=== PATIENT | female | born 1950 | race Caucasian/White ===

== ENCOUNTER → 2024-06-26 15:08 | Outpatient (REF) | payer MEDICARE, SELFPAY | LOC: RAD 15:08 | PROVIDERS: ATTENDING PHYSICIAN Orthopaedic Surgery; FAMILY PHYSICIAN Internal Medicine | DX: S83.232A Complex tear of medial meniscus, current injury, left knee, initial encounter (principal); M25.562 Pain in left knee; M79.89 Other specified soft tissue disorders | CPT/HCPCS: 93971 ==

== ENCOUNTER → 2024-08-21 13:53 | Outpatient (REF) | payer MEDICARE, SELFPAY | LOC: RAD 13:53 | PROVIDERS: ATTENDING PHYSICIAN Internal Medicine; FAMILY PHYSICIAN Orthopaedic Surgery | DX: S83.282D Other tear of lateral meniscus, current injury, left knee, subsequent encounter (principal) | CPT/HCPCS: 73564 ==

== ENCOUNTER → 2024-09-16 09:19 | Outpatient (REF) | payer MEDICARE, SELFPAY ==
[2024-09-16 11:18] LABS: % Basophils 0.6 % (0-2); % Eosinophils 5.2 % (0-6); % Immature Granulocytes 0.6 % (0-0.5); % Lymphocytes 28.8 % (20.5-51.1); % Monocytes 8.6 % (1.7-9.3); % Neutrophils 56.2 % (42.2-75.2); Absolute Eosinophils 0.2 10^3/uL (0-0.7); Absolute Lymphocytes 1.3 10^3/uL (1.2-3.4); Absolute Monocytes 0.4 10^3/uL (0.1-0.6); Absolute Neutrophils 2.6 10^3/uL (1.4-6.5); Hematocrit 35.9 % (37.0-47.0); Hemoglobin 12.1 g/dL (12.0-16.0); Mean Corp Hgb Conc. 33.7 g/dL (33.0-37.0); Mean Corpuscular Hgb 28.7 pg (27.0-31.0); Mean Corpuscular Volume 85.3 fL (81.0-99.0); Mean Platelet Volume 9.1 fL (7.4-10.4); Nucleated Red Blood Cells % 0 %; Platelet Count 194 10^3/uL (130-400); Red Blood Cell Count 4.21 10^6/uL (4.20-5.40); White Blood Cell Count 4.7 10^3/uL (4.8-10.8)
[2024-09-16 12:46] LABS: Erythrocyte Sed Rate 17 mm/hour (0-20)
[2024-09-16 14:20] LABS: ALT (SGPT) 17 U/L (0-35); AST (SGOT) 24 U/L (14-36); Albumin 4.1 g/dl (3.5-5.0); Alkaline Phosphatase 74 U/L (38-126); Blood Urea Nitrogen 16 mg/dl (7-17); Calcium 8.8 mg/dl (8.4-10.2); Carbon Dioxide 30 mmol/L (22-30); Chloride 103 mmol/L (98-107); Glucose 84 mg/dl (70-99); Potassium 3.5 mmol/L (3.5-5.1); Sodium 141 mmol/L (135-145); Total Bilirubin 0.4 mg/dl (0.2-1.3); Total Protein 6.6 g/dl (6.3-8.2); Uric Acid 4.6 mg/dl (2.5-6.2); eGFR > 60.00
== END ==
LOC: RAD 09:19
PROVIDERS: ATTENDING PHYSICIAN Orthopaedic Surgery; FAMILY PHYSICIAN Internal Medicine
DX: M25.569 Pain in unspecified knee (principal); M51.372 Other intervertebral disc degeneration, lumbosacral region with discogenic back pain and lower extremity pain; M25.552 Pain in left hip; R26.89 Other abnormalities of gait and mobility; R60.9 Edema, unspecified; S83.21 Bucket-handle tear of medial meniscus, current injury; S83.28 Other tear of lateral meniscus, current injury
CPT/HCPCS: 36415; 78315; 80053; 82306; 84550; 85025; 85652; 86140; A9503